=== PATIENT | female | born 1970 | race Caucasian/White ===

== ENCOUNTER 2016-06-26 08:56 | Emergency (ER) | payer OTHER ==
[~2016-06-26] VITALS: Ht 165.1 cm; Wt 90.7 kg
[2016-06-26 09:03] VITALS: BP 144/109; PULSE 75; RESP 16; TEMP 98.2; O2SAT 99
[2016-06-26] MEDS ORDERED: HYDROcodone/ACETAMIN 5-325 MG TAB (NORCO/ VICODIN) PO ONE (09:30)
[2016-06-26] MEDS ORDERED: DEXAMETHASONE SOD PHOSPHATE 10 MG/ML VIAL IM ONE (09:30)
[2016-06-26] MEDS ORDERED: ONDANSETRON 4 MG ODT TAB PO ONE ×2 (09:30→12:45)
[2016-06-26] MEDS ORDERED: KETOROLAC TROMETHAMINE 60 MG/2 ML VIAL IM ONE (09:30)
[2016-06-26 09:53] LABS: BILIRUBIN,URINE NEGATIVE (NEGATIVE); BLOOD, URINE 3+ (NEGATIVE); CLARITY/URINE CLEAR (CLEAR); COLOR,URINE YELLOW (YELLOW); GLUCOSE,URINE NEGATIVE (NEGATIVE); KETONES,URINE NEGATIVE (NEGATIVE); LEUKOCYTE ESTERASE ,URINE 1+ (NEGATIVE); NITRITE, URINE NEGATIVE (NEGATIVE); PH,URINE 6.5 (5.0-8.0); PROTEIN URINE NEGATIVE (NEGATIVE); UROBILINOGEN,URINE 0.2 (0.2-1.0)
[2016-06-26 10:03] LABS: BACTERIA,URINE FEW /HPF (None Seen); MUCUS,URINE None Seen /LPF (None Seen)
[2016-06-26] MEDS ORDERED: MORPHINE 4 MG/ML INJ. SYRINGE IM ONE (12:15)
[2016-06-26 12:40] VITALS: BP 137/80; PULSE 76; RESP 16; TEMP 98.2; O2SAT 99
== END 2016-06-26 12:40 | disposition home or self-care (01) ==
LOC: SED 08:56
DX: D25.9 Leiomyoma of uterus, unspecified (principal); N83.209 Unspecified ovarian cyst, unspecified side; N39.0 Urinary tract infection, site not specified; Z88.0 Allergy status to penicillin
CPT/HCPCS: 74176; 76830; 76857; 81000; 96372; 99285; J1100; J1885; J2270; Q0162

== ENCOUNTER 2019-03-23 06:30 | Day surgery (SDC) | payer BC ==
[~2019-03-23] VITALS: Ht 165.1 cm; Wt 84.8 kg
[2019-03-23 07:28] LABS: HCG,QUAL RESULT NEGATIVE (NEGATIVE)
[2019-03-23] MEDS ORDERED: ONDANSETRON HCL 4 MG/2 ML VIAL IVP PRN (08:15)
[2019-03-23] MEDS ORDERED: fentaNYL CITRATE/PF 100 MCG/2 ML AMP IVP PRN (08:15)
[2019-03-23] MEDS ORDERED: NEOSTIGMINE METHYLSULFATE 1 MG/ML, 10 ML VIAL ONE (10:15)
[2019-03-23] MEDS ORDERED: NS IRRIG SOLN 1000 ML IR ONE (10:15)
[2019-03-23] MEDS ORDERED: GLYCOPYRROLATE 0.2 MG/ML VIAL ONE (10:15)
[2019-03-23] MEDS ORDERED: fentaNYL CITRATE/PF 100 MCG/2 ML AMP ONE ×2 (10:15→10:52)
[2019-03-23] MEDS ORDERED: EPINEPHrine 1 MG/ML AMP ONE (10:15)
[2019-03-23] MEDS ORDERED: NS 1000 ML IV.SOLN IV ONE (10:15)
[2019-03-23] MEDS ORDERED: MIDAZOLAM HCL 5 MG/ML VIAL (VERSED) IV ONE (10:15)
[2019-03-23] MEDS ORDERED: BACITRACIN 1 GM OINT TP ONE (10:15)
[2019-03-23] MEDS ORDERED: LIDOCAINE/EPI 1% 1:100000 20 ML VIAL INJ ONE (10:15)
[2019-03-23] MEDS ORDERED: ONDANSETRON HCL 4 MG/2 ML VIAL ONE (10:15)
[2019-03-23] MEDS ORDERED: OXYMETAZOLINE HCL 0.05% NASAL SPRAY NS ONE (10:15)
[2019-03-23] MEDS ORDERED: SEVOFLURANE 15 MIN GAS INH ONE (10:15)
[2019-03-23] MEDS ORDERED: DEXAMETHASONE SOD PHOSPHATE 4 MG/ML VIAL ONE (10:15)
[2019-03-23] MEDS ORDERED: PROPOFOL 200MG/ 20ML VIAL (DIPRIVAN) IV ONE (10:15)
[2019-03-23] MEDS ORDERED: LR 1,000 ML IV.SOLN IV ONE (10:15)
[2019-03-23] MEDS: fentaNYL CITRATE/PF 100 MCG/2 ML AMP IVP PRN ×2 (10:40→10:55)
[2019-03-23 11:35] VITALS: BP_SYST 137
[2019-03-23] MEDS ORDERED: HYDROcodone/ACETAMIN 5-325 MG TAB (NORCO/ VICODIN) PO ONE (12:00)
[2019-03-23] MEDS ORDERED: hydrALAZINE HCL 20 MG/ML VIAL IVP ONE (12:00)
[2019-03-23] MEDS ORDERED: HYDROcodone/ACETAMIN 5-325 MG TAB (NORCO/ VICODIN) ONE (12:08)
== END 2019-03-23 14:10 | disposition home or self-care (01) ==
LOC: SMU 06:30 → SDS 06:30 → SMU 06:53 → SDS 14:10
PROVIDERS: ATTEND Otolaryngology
DX: J34.89 Other specified disorders of nose and nasal sinuses (principal); J01.40 Acute pansinusitis, unspecified; J32.4 Chronic pansinusitis; K21.9 Gastro-esophageal reflux disease without esophagitis; D38.5 Neoplasm of uncertain behavior of other respiratory organs; Z88.0 Allergy status to penicillin
CPT/HCPCS: 30140; 30520; 31255; 31267; 31298; 84703; 88305; 88311; C1726; J0171; J1100; J2250; J2405; J2704; J2710; J3010; J3490; J7030; J7120; 88304